=== PATIENT | male | born 1960 | race Caucasian/White ===

== ENCOUNTER 2017-09-26 16:10 | Observation (INO) | payer SELFPAY ==
[~2017-09-26] VITALS: Ht 193 cm; Wt 120.0 kg
[~2017-09-26 16:10] MED LIST: HYDR12.56 PO; INDO25CA PO; LISI-366 PO
[2017-09-26 16:22] VITALS: BP 136/90; PULSE 80; RESP 20; TEMP 98.8; O2SAT 98
--- NOTE | 2017-09-26 17:09 | PD ---
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 However stated that they did not do any type of surgery, he does state that they did some sort of a cath and endoscopy while there. He denies having any history of a AAA or aortic dissection per patient. Patient states that he has epigastric midline area pain, 5 out of 10, associated with some nausea. Denies any alleviating or aggravating factors. Denies any associated factors such as fever, rash, chest pain, headache, back pain, diarrhea, cough, runny nose, sore throat. List metoprolol as an allergy (apparently taken this medication orally caused him to have a very low blood pressure that required that he be resuscitated) Past medical and surgical history significant for cardiac arrest in October 2009 per patient, hypertension, kidney stones, PFSH Past Medical History Heart Rhythm Problems: No Cardiac Catheterization: No Cardiovascular Problems: No (CARIDAC ARREST OCTOBER 19, 2009 PER PT) Congestive Heart Failure: No Diabetes: No Hypertension: Yes Kidney Stones: Yes (LITHOTRIPSY 2009) Musculoskeletal: Yes (KNEE PROBLEMS) Past Surgical History Coronary Artery Bypass Graft: No Social History Alcohol Use: No (HASNT DRANK SINCE 1980) Tobacco Use: Yes (/2 PPD) Substance Use: No Allergies-Medications (Allergen,Severity, Reaction): Coded Allergies: metoprolol (Verified Allergy, Severe, Anaphylaxis, 09/26/17) Reported Meds & Prescriptions Reported Meds & Active Scripts Active Reported Nitroglycerin SL (Nitroglycerin) 0.4 Mg Subl 0.4 Mg SL DIRECTED PRN ONE TABLET UNDER THE TONGUE NEEDED FOR CHEST PAIN, MAY REPEAT EVERY FIVE MINUTES FOR A TOTAL OF 3 DOSES OR CALL 911 IF NO RELIEF Indomethacin 25 Mg Cap 25 Mg PO DAILY PRN Take with food, milk, or antacids to decrease stomach adverse effects. Aspirin 81 Mg Chew 81 Mg CHEW DAILY Hydrochlorothiazide 12.5 Mg Cap 12.5 Mg PO DAILY Lisinopril 40 Mg Tab 40 Mg PO DAILY Review of Systems Except as stated in HPI: all other systems reviewed are Neg General / Constitutional: No: Fever Eyes: No: Visual changes HENT: No: Headaches Cardiovascular: Positive: Chest Pain or Discomfort Respiratory: No: Shortness of Breath Gastrointestinal: Positive: Nausea Genitourinary: No: Dysuria Musculoskeletal: No: Pain Skin: No Rash Neurologic: No: Weakness Psychiatric: No: Depression Endocrine: No: Polydipsia Hematologic/Lymphatic: No: Easy Bruising Physical Exam Narrative GENERAL: SKIN: Warm and dry. HEAD: Atraumatic. Normocephalic. EYES: Pupils equal and round. No scleral icterus. No injection or drainage. ENT: No nasal bleeding or discharge. Mucous membranes pink and moist. NECK: Trachea midline. No JVD. CARDIOVASCULAR: Regular rate and rhythm. RESPIRATORY: No accessory muscle use. Clear to auscultation. Breath sounds equal bilaterally. GASTROINTESTINAL: Abdomen soft, MILD EPIG TTPERCUSSION, nondistended.. MUSCULOSKELETAL: Extremities without clubbing, cyanosis, or edema. No obvious deformities. NEUROLOGICAL: Awake and alert. No obvious cranial nerve deficits. Motor grossly within normal limits. Five out of 5 muscle strength in the arms and legs. Normal speech. PSYCHIATRIC: Appropriate mood and affect; insight and judgment normal. Data Data Last Documented VS Vital Signs Date Time Temp Pulse Resp B/P (MAP) Pulse Ox O2 Delivery O2 Flow Rate FiO2 09/26/17 16:22 98.8 80 20 136/90 (105) 98 Orders Orders Electrocardiogram (09/26/17 16:26) Complete Blood Count With Diff (09/26/17 16:26) Basic Metabolic Panel (Bmp) (09/26/17 16:26) Ckmb (Isoenzyme) Profile (09/26/17 16:26) Troponin I (09/26/17 16:26) Chest, Single Ap (09/26/17 16:26) Cta Thor Abd Aorta W Iv C W3d (09/26/17 17:26) Lipase (09/26/17 16:26) Iohexol 350 Inj (Omnipaque 350 Inj) (09/26/17 18:08) Morphine Inj (Morphine Inj) (09/26/17 18:15) Ondansetron Inj (Zofran Inj) (09/26/17 18:15) Labs Laboratory Tests Test 09/26/17 17:25 [facility] Medical Decision Making Medical Screen Exam Complete: Yes Emergency Medical Condition: Yes Medical Record Reviewed: Yes Differential Diagnosis AAA versus aortic dissection versus pancreatitis versus colitis versus diverticulitis Narrative Course Patient has been treated with IV pain medications Zofran and IV fluids, patient will be signed out to oncoming physician pending CT results CTA chest performed on August 26, 2012: Showed that the lungs did not have any evidence of PE. No evidence of aneurysm, no infiltrate, nodule, pericardial effusion or mass noted. CT abdomen pelvis without contrast performed in 2006 did not reveal any aneurysmal changes it did show some calculi. Diagnosis Primary Impression: Abdominal pain Qualified Codes: R10.13 - Epigastric pain Edwardo Yanes MD Sep 26, 2017 17:09
[2017-09-26] MEDS ORDERED: HYDR12.57 PO (17:16)
[2017-09-26] MEDS ORDERED: INDO25CA PO (17:16)
[2017-09-26] MEDS ORDERED: LISI40TA PO (17:16)
[2017-09-26] MEDS ORDERED: NITR1SUB3 SL (17:16)
[2017-09-26] MEDS ORDERED: ASPI-516 CHEW (17:16)
--- NOTE | 2017-09-26 18:00 | RADRPT ---
EXAM DATE/TIME: 09/26/2017 17:40 [facility] COMPARISON: No previous studies available for comparison. INDICATIONS : Chest pain. MEDICAL HISTORY : None. SURGICAL HISTORY : None. ENCOUNTER: Initial ACUITY: 1 day PAIN SCORE: 6/10 LOCATION: chest FINDINGS: Single AP view of the chest. The lungs are clear. Cardiomediastinal silhouette within normal limits. No evidence of pleural effusion or pneumothorax. CONCLUSION: No acute cardiopulmonary disease identified. Leoncio Gongora MD on September 26, 2017 at 17:57 Board Certified Radiologist. This report was verified electronically.
[2017-09-26] MEDS ORDERED: IOHEXOL 350 MG/ML 10 ML VIAL (for RAD DIAG) IVCONTRAST ONE (18:08)
[2017-09-26] MEDS ORDERED: ONDANSETRON HCL 4 MG/2 ML VIAL IVP ONE (18:15)
[2017-09-26] MEDS ORDERED: MORPHINE SULFATE 4 MG/ML INJ IV PUSH ONE (18:15)
[2017-09-26 18:25] VITALS: BP 124/86; PULSE 76; RESP 17; O2SAT 97
[2017-09-26 18:25] LABS: AUTOMATED NEUTROPHIL # 3.8 TH/MM3 (1.8-7.7); BASOPHIL % 0.6 % (0.0-2.0); EOSINOPHIL # 0.2 TH/MM3 (0-0.4); EOSINOPHIL % 2.9 % (0.0-4.0); HEMATOCRIT 47.5 % (39.0-51.0); HEMOGLOBIN 16.6 GM/DL (13.0-17.0); LYMPH % 33.5 % (9.0-44.0); LYMPHOCYTE # 2.4 TH/MM3 (1.0-4.8); MEAN CELL VOLUME 93.5 FL (80.0-100.0); MEAN CORPUSCULAR HEMOGLOBIN 32.6 PG (27.0-34.0); MEAN CORPUSCULAR HGB CONC 34.9 % (32.0-36.0); MEAN PLATELET VOLUME 7.6 FL (7.0-11.0); MONO % 8.4 % (0.0-8.0); MONOCYTE # 0.6 TH/MM3 (0-0.9); NEUT % 54.6 % (16.0-70.0); PLATELET COUNT 259 TH/MM3 (150-450); RED BLOOD COUNT 5.08 MIL/MM3 (4.50-5.90); RED CELL DISTRIBUTION WIDTH 13.4 % (11.6-17.2)
[2017-09-26 18:30] LABS: BICARBONATE 31.3 MEQ/L (21.0-32.0); BLOOD UREA NITROGEN 13 MG/DL (7-18); CALCIUM 9.8 MG/DL (8.5-10.1); CHLORIDE 102 MEQ/L (98-107); CREATININE 1.25 MG/DL (0.60-1.30); GLOMERULAR FILTRATION RATE 59 ML/MIN (>89); GLUCOSE,RANDOM 75 MG/DL (74-106); SODIUM (NA) 138 MEQ/L (136-145)
[2017-09-26 18:34] LABS: TROPONIN I LESS THAN 0.02 NG/ML (0.02-0.05)
--- NOTE | 2017-09-26 18:44 | RADRPT ---
EXAM DATE/TIME: 09/26/2017 18:04 [facility] COMPARISON: No previous studies available for comparison. INDICATIONS : Chest pain, history of celiac artery dissection. IV CONTRAST: 100 cc Omnipaque 350 (iohexol) IV RADIATION DOSE: 9.87 CTDIvol (mGy) MEDICAL HISTORY : Aneurysm, abdominal. Cardiovascular disease Hypertension. SURGICAL HISTORY : Lithotripsy. ENCOUNTER: Initial ACUITY: 1 day PAIN SCALE: 5/10 LOCATION: Left chest TECHNIQUE: Volumetric scanning was performed using a multi-row detector CT scanner. The data was post processed with a variety of visualization algorithms including full volume maximum intensity projection, multi -planar sliding thin slab reformation, curved planar reformation, and surface rendering techniques. Using automated exposure control and adjustment of the mA and/or kV according to patient size, radiat ion dose was kept as low as reasonably achievable to obtain optimal diagnostic quality images. DICOM format image data is available electronically for review and comparison. FINDINGS: The ascending, transverse and descending thoracic aorta are intact without aneurysm or dissection. Reportedly there is a dissection of the celiac artery by history. The distal celiac artery is mildly aneurysmal to about 1.4 cm and is flat. Super mesenteric artery and inferior mesenteric artery are pa tent without evidence for dissection. There is no abdominal aortic aneurysm or dissection. Nonobstructing calculus noted lower pole right kidney measuring 4 mm. No acute findings in the liver, spleen, left kidney, adrenals, pancreas or gallbladder. Iliac arteries are patent bilaterally. No obvious filling defects in the pulmonary arteries. Calcified granuloma left lung base. No lung con solidation. CONCLUSION: 1. 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 By history there is a reported previous celiac artery dissection. No other dissection identified within the chest and abdomen. 2. There are some calcifications in the pancreatic head which may indicate chronic pancreatitis. No o bstructing right renal calculus. Juan Mathur MD on September 26, 2017 at 18:37 Board Certified Radiologist. This report was verified electronically.
[2017-09-26] MEDS ORDERED: ASPIRIN 81 MG CHEW TAB PO ONE (19:15)
[2017-09-26] MEDS ORDERED: NITROGLYCERIN 0.4 MG SL 25 TABS/BTL SL PRN (19:15)
[2017-09-26] MEDS ORDERED: ONDANSETRON HCL 4 MG/2 ML VIAL IV PUSH PRN (19:15)
[2017-09-26] MEDS ORDERED: SODIUM CHLORIDE 0.9% FLUSH 10 ML FLUSH IV FLUSH PRN (19:15)
[2017-09-26 19:25] VITALS: BP 123/92; PULSE 83; RESP 16; O2SAT 97
[2017-09-26 20:08] VITALS: BP 131/85; PULSE 75; RESP 18; TEMP 98.2; O2SAT 99
[2017-09-26 20:53] LABS: TROPONIN I LESS THAN 0.02 NG/ML (0.02-0.05)
--- NOTE | 2017-09-26 22:08 | EKG ---
Date Performed: 09/26/2017 Time Performed: 19:39:22 PTAGE: 56 years EKG: Sinus rhythm NORMAL ECG No significant change from prior electrocardiogram. PREVIOUS TRACING : 09/26/2017 16.38 DOCTOR: Song Johnson Interpretating Date/Time 09/26/2017 22:08:13
--- NOTE | 2017-09-26 22:13 | EKG ---
Date Performed: 09/26/2017 Time Performed: 16:38:11 PTAGE: 56 years EKG: Sinus rhythm NORMAL ECG Compared to prior electrocardiogram, Prior electrocardiogram has marked artifact but I do not see any definite changes. PREVIOUS TRACING : 08/26/2012 07.29 DOCTOR: Song Johnson Interpretating Date/Time 09/26/2017 22:12:38
[2017-09-26] MEDS: SODIUM CHLOR 0.9% 1000 ML INJ 1,000 ML IV SCH (22:46)
[2017-09-26] MEDS: SODIUM CHLORIDE 0.9% FLUSH 10 ML FLUSH IV FLUSH SCH (22:46)
[2017-09-26 23:17] VITALS: PULSE 76
[2017-09-27 00:20] VITALS: BP 115/67; PULSE 67; RESP 18; TEMP 98; O2SAT 97
[2017-09-27 00:20] LABS: TROPONIN I LESS THAN 0.02 NG/ML (0.02-0.05)
[2017-09-27 05:08] VITALS: BP 115/80; PULSE 59; RESP 18; TEMP 98.1; O2SAT 93
[2017-09-27 07:00] VITALS: PULSE 62
[2017-09-27 08:17] VITALS: BP 110/67; PULSE 70; RESP 20; TEMP 98.2; O2SAT 18
[2017-09-27] MEDS: SODIUM CHLORIDE 0.9% FLUSH 10 ML FLUSH IV FLUSH SCH (08:50)
[2017-09-27] MEDS: SODIUM CHLOR 0.9% 1000 ML INJ 1,000 ML IV SCH (08:54)
--- NOTE | 2017-09-27 08:55 | HHI.HP ---
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 He was seen by vascular surgeon at [facility] was told that he was stable and as long as he kept his blood pressure down would probably be all right. He was also told if he had recurrent pain that he was to come to emergency room immediately. Thursday night after trying to eat he developed severe abdominal pain associated with nausea and some shortness of breath. These were the same symptoms he had experienced 2 years ago. However this time he also had pain in his left lower chest which was rated as an 8 out of 10 along with his belly pain. This fluctuated and felt like a hot poker or a muscle cramp. There was no radiation however he did feel nauseated and somewhat short of breath. Nothing seemed to relieve this but it went away spontaneously after about 6 hours. He also has a history of a cardiac arrest. He apparently was placed on metoprolol for his hypertension and subsequently became severely hypotensive resulting in a code. He currently takes his medication for blood pressure avoid salt in his diet although he does note that he has a significant amount of peripheral edema quite frequently. Review of Systems Cardiovascular: COMPLAINS OF: See HPI Gastrointestinal: COMPLAINS OF: Nausea Musculoskeletal: COMPLAINS OF: Joint pain Past Family Social History Allergies: Coded Allergies: metoprolol (Verified Allergy, Severe, Anaphylaxis, 09/26/17) Past Medical History Dissected celiac artery Stent in his kidney Hypertension Lithotripsy Past Surgical History None Reported Medications Reported Meds & Active Scripts Active Reported Nitroglycerin SL (Nitroglycerin) 0.4 Mg Subl 0.4 Mg SL DIRECTED PRN ONE TABLET UNDER THE TONGUE NEEDED FOR CHEST PAIN, MAY REPEAT EVERY FIVE MINUTES FOR A TOTAL OF 3 DOSES OR CALL 911 IF NO RELIEF Indomethacin 25 Mg Cap 25 Mg PO DAILY PRN Take with food, milk, or antacids to decrease stomach adverse effects. Aspirin 81 Mg Chew 81 Mg CHEW DAILY Hydrochlorothiazide 12.5 Mg Cap 12.5 Mg PO DAILY Lisinopril 40 Mg Tab 40 Mg PO DAILY Active Ordered Medications Current Medications Medications (Trade) Dose Ordered Sig/Aaron Route Start Time Stop Time Status Last Admin Sodium Chloride 1,000 ml @ 100 mls/hr Q10H IV 09/26/17 19:03 09/26/17 22:46 (NS Flush) 2 ml UNSCH PRN IV FLUSH 09/26/17 19:15 (NS Flush) 2 ml BID IV FLUSH 09/26/17 21:00 09/26/17 22:46 (Zofran Inj) 4 mg Q6H PRN IV PUSH 09/26/17 19:15 (Prinivil) 10 mg DAILY PO 09/27/17 09:00 (Nitrostat Sl) 0.4 mg Q5M PRN SL 09/26/17 19:15 Family History Father of cancer Mother age 92 after a fall Social History Smokes a half a pack a day discussed his need to stop smoking No alcohol since 1980 Denies drugs He is a semitruck professional driver Physical Exam Vital Signs Vital Signs Date Time Temp Pulse Resp B/P (MAP) Pulse Ox O2 Delivery O2 Flow Rate FiO2 09/27/17 08:17 98.2 70 20 18 09/27/17 05:08 98.1 59 18 115/80 (92) 93 09/27/17 00:20 98.0 67 18 115/67 (83) 97 09/26/17 23:17 76 09/26/17 20:08 98.2 75 18 131/85 (100) 99 09/26/17 20:00 09/26/17 19:25 83 16 123/92 (102) 97 Room Air 09/26/17 18:25 76 17 124/86 (99) 97 Room Air 09/26/17 16:22 98.8 80 20 136/90 (105) 98 Physical Exam GENERAL: Well-nourished well-developed man in no acute distress SKIN: Warm and dry. A number of tattoos are noted HEAD: Atraumatic. Normocephalic. EYES: Pupils equal and round. No scleral icterus. No injection or drainage. Extraocular movements intact ENT: No nasal bleeding or discharge. Mucous membranes pink and moist. Edentulous NECK: Trachea midline. No JVD. CARDIOVASCULAR: Regular rate and rhythm. RESPIRATORY: No accessory muscle use. Clear to auscultation. Breath sounds equal bilaterally. GASTROINTESTINAL: Abdomen soft, some voluntary guarding and diffusely tender in the mid and epigastric area. Hepatic and splenic margins not palpable. MUSCULOSKELETAL: Extremities without clubbing, cyanosis. 2+ pitting edema. No obvious deformities. NEUROLOGICAL: Awake and alert. No obvious cranial nerve deficits. Motor grossly within normal limits. Five out of 5 muscle strength in the arms and legs. Normal speech. PSYCHIATRIC: Appropriate mood and affect; insight and judgment normal. Laboratory Laboratory Tests Test 09/26/17 17:25 09/26/17 19:20 09/26/17 23:20 White Blood Count 7.0 Red Blood Count 5.08 Hemoglobin 16.6 Hematocrit 47.5 Mean Corpuscular Volume 93.5 Mean Corpuscular Hemoglobin 32.6 Mean Corpuscular Hemoglobin Concent 34.9 Red Cell Distribution Width 13.4 Platelet Count 259 Mean Platelet Volume 7.6 Neutrophils (%) (Auto) 54.6 Lymphocytes (%) (Auto) 33.5 Monocytes (%) (Auto) 8.4 Eosinophils (%) (Auto) 2.9 Basophils (%) (Auto) 0.6 Neutrophils # (Auto) 3.8 Lymphocytes # (Auto) 2.4 Monocytes # (Auto) 0.6 Eosinophils # (Auto) 0.2 Basophils # (Auto) 0.0 CBC Comment DIFF FINAL Differential Comment Blood Urea Nitrogen 13 Creatinine 1.25 Random Glucose 75 Calcium Level 9.8 Sodium Level 138 Potassium Level 4.6 Chloride Level 102 Carbon Dioxide Level 31.3 Anion Gap 5 Estimat Glomerular Filtration Rate 59 Total Creatine Kinase 322 237 204 Creatine Kinase MB 4.6 3.3 Creatine Kinase MB % 1.4 Troponin I LESS THAN 0.02 LESS THAN 0.02 LESS THAN 0.02 Lipase 286 Result Diagram: 09/26/17 1725 09/26/17 1725 Imaging Negative chest x-ray Course Patient has ruled out for ACS. Nuclear stress test will be obtained. If negative consideration of repeat abdominal study will be entertained Caprini VTE Risk Assessment Caprini VTE Risk Assessment: No/Low Risk (score <= 1) VTE Pharm Contraindication: High risk for bleeding Caprini Risk Assessment Model Point Value = 1 Point Value = 2 Point Value = 3 Point Value = 5 Age 41-60 Minor surgery BMI > 25 kg/m2 Swollen legs Varicose veins or History of unexplained or recurrent spontaneous Oral contraceptives or hormone replacement Sepsis (< 1 month) Serious lung disease, including pneumonia (< 1 month) Abnormal pulmonary function Acute myocardial infarction Congestive heart failure (< 1 month) History of inflammatory bowel disease Medical patient at bed rest Age 61-74 Arthroscopic surgery Major open surgery (> 45 min) Laparoscopic surgery (> 45 min) Malignancy Confined to bed (> 72 hours) Immobilizing plaster cast Central venous access Age >= 75 History of VTE Family history of VTE Factor V Leiden Prothrombin [id number] Lupus anticoagulant Anticardiolipin antibodies Elevated serum homocysteine Heparin-induced thrombocytopenia Other congenital or acquired thrombophilia Stroke (< 1 month) Elective arthroplasty Hip, pelvis, or leg fracture Acute spinal cord injury (< 1 month) Prophylaxis Regimen Total Risk Factor Score Risk Level Prophylaxis Regimen 0-1 Low Early ambulation 2 Moderate Order ONE of the following: *Sequential Compression Device (SCD) *Heparin 5000 units SQ BID 3-4 Higher Order ONE of the following medications: *Heparin 5000 units SQ TID *Enoxaparin/Lovenox 40 mg SQ daily (WT < 150 kg, CrCl > 30 mL/min) *Enoxaparin/Lovenox 30 mg SQ daily (WT < 150 kg, CrCl > 10-29 mL/min) *Enoxaparin/Lovenox 30 mg SQ BID (WT < 150 kg, CrCl > 30 mL/min) AND/OR *Sequential Compression Device (SCD) 5 or more Highest Order ONE of the following medications: *Heparin 5000 units SQ TID (Preferred with Epidurals) *Enoxaparin/Lovenox 40 mg SQ daily (WT < 150 kg, CrCl > 30 mL/min) *Enoxaparin/Lovenox 30 mg SQ daily (WT < 150 kg, CrCl > 10-29 mL/min) *Enoxaparin/Lovenox 30 mg SQ BID (WT < 150 kg, CrCl > 30 mL/min) AND *Sequential Compression Device (SCD) Kostas Castellano MD Sep 27, 2017 08:55
[2017-09-27] MEDS ORDERED: PANTOPRAZOLE SOD 40 MG DELAYED RELEASE TAB PO SCH (09:00)
[2017-09-27] MEDS ORDERED: LISINOPRIL 10 MG TAB PO SCH (09:00)
[2017-09-27] MEDS ORDERED: ACETAMINOPHEN 500 MG CPLT PO PRN (09:00)
[2017-09-27] MEDS ORDERED: MORPHINE SULFATE 2 MG/ML INJ IV PUSH PRN (09:00)
[2017-09-27 09:31] VITALS: O2SAT 98
[2017-09-27] MEDS ORDERED: REGADENOSON INJ 0.4 MG/5 ML SYR ONE (10:41)
--- NOTE | 2017-09-27 12:27 | RADRPT ---
EXAM DATE/TIME: 09/27/2017 10:31 [facility] COMPARISON: No previous studies available for comparison. INDICATIONS : Left sided chest pain. Angina. DOSE: 35 mCi Tc99m Myoview at stress. 11 mCi Tc99m Myoview at rest. 0.4 mg Lexiscan STRESS SYMPTOMS: Short of breath. EJECTION FRACTION: 65% MEDICAL HISTORY : Hypertension. SURGICAL HISTORY : Disecting celiac artery. ENCOUNTER: Initial ACUITY: 2 days PAIN SCALE: 8/10 LOCATION: Left chest TECHNIQUE: The patient underwent pharmacologic stress with infusion of prescribed dose. Continuous ECG tracing was monitored during stress. Gated SPECT imaging was performed after stress and conventional SPECT i maging was performed at rest. The examination was performed on a SPECT/CT scanner, both attenuation and non-corrected datasets were reviewed. FINDINGS: DISTRIBUTION: The maximum perfused segment at stress is in the anterior wall. PERFUSION STUDY: The pattern of perfusion at stress is within normal limits. GATED STUDY: There is intact wall motion and thickening without hypokinetic or dyskinetic segments. CONCLUSION: 1. No significant reversibility to suggest ischemia. 2. Normal wall motion with ejection fraction 65%. RISK CATEGORY: Low (<1% Annual Mortality Rate) Juan Mathur MD on September 27, 2017 at 12:19 Board Certified Radiologist. This report was verified electronically.
--- NOTE | 2017-09-27 12:35 | HHI.DS ---
Discharge Summary Admission Date Sep 26, 2017 at 19:08 Admitting Diagnosis CP R/O MT CBC/BMP: 09/26/17 1725 09/26/17 1725 Significant Findings Laboratory Tests Test 09/26/17 17:25 09/26/17 19:20 09/26/17 23:20 Monocytes (%) (Auto) 8.4 % (0.0-8.0) Estimat Glomerular Filtration Rate 59 ML/MIN (>89) Total Creatine Kinase 322 U/L (39-308) Creatine Kinase MB 4.6 NG/ML (0.5-3.6) Troponin I LESS THAN 0.02 NG/ML LESS THAN 0.02 NG/ML LESS THAN 0.02 NG/ML Pt Condition on Discharge: Good Discharge Disposition: Discharge Home Discharge Instructions DIET: Follow Instructions for: Heart Healthy Diet Activities you can perform: Regular-No Restrictions Kostas Castellano MD Sep 27, 2017 12:35
--- NOTE | 2017-09-27 12:44 | EKG ---
Date Performed: 09/27/2017 Time Performed: 00:08:10 PTAGE: 56 years EKG: Sinus rhythm NORMAL ECG No change PREVIOUS TRACING : 09/27/2017 00.07 DOCTOR: Kostas Castellano Interpretating Date/Time 09/27/2017 12:43:37
[2017-09-27 13:32] LABS: TROPONIN I LESS THAN 0.02 NG/ML (0.02-0.05)
--- NOTE | 2017-09-28 10:17 | TR ---
Date Performed: 09/27/2017 Time Performed: 11:11:47 DOCTOR: Kostas Castellano DRUG LIST: CLINICAL HISTORY: REASON FOR TEST: REASON FOR ENDING: OBSERVATION: CONCLUSION: Lexiscan stress test was performed under standard four minute protocol. Radionuclide was injected one minute prior to ending the test. No electrocardiographic abormalities were present to suggest ischemia. Nuclear imaging and interpretation are pending. COMMENTS:
== END 2017-09-27 15:21 | disposition home or self-care (01) ==
LOC: NEPC 16:10 → NEDA 19:08 → NEPGCP 20:05
DX: R07.9 Chest pain, unspecified (principal); R10.13 Epigastric pain; R06.02 Shortness of breath; R11.0 Nausea; I10 Essential (primary) hypertension; I20.9 Angina pectoris, unspecified; I95.9 Hypotension, unspecified; R60.0 Localized edema; I77.70 Dissection of unspecified artery; F17.200 Nicotine dependence, unspecified, uncomplicated; Z79.899 Other long term (current) drug therapy; Z86.74 Personal history of sudden cardiac arrest
CPT/HCPCS: 71045; 71275; 74174; 78452; 80048; 82550; 82552; 83690; 84484; 85025; 93005; 93017; 96361; 96374; 96375; 99285; A9502; G0378; J2270; J2405; J2785; J7030; Q9967